=== PATIENT | male | born 1975 | race Hispanic/Latino ===

== ENCOUNTER 2017-01-18 04:50 | Emergency (ER) | payer SELFPAY ==
[~2017-01-18] VITALS: Ht 170.2 cm; Wt 112.7 kg
[~2017-01-18 04:50] MED LIST: BACTRIM,SEPT1 TABLET PO; MITRAZOL 2% CRE45 GM TP; MOBIC7.5 MG PO
[2017-01-18 06:05] LABS: ADD MIUA? YES; BILIRUBIN NEGATIVE; BLOOD SMALL; COLOR YELLOW ((YELLOW)); GLUCOSE (STRIP) >=500; KETONES NEGATIVE; LEUKOCYTES SMALL; NITRITE NEGATIVE; PROTEIN (STRIP) NEGATIVE; SPECIFIC GRAVITY 1.029 (1.000-1.030); UROBILINOGEN 0.2 MG/DL (0.2-1.0)
[2017-01-18 06:08] LABS: BACTERIA NONE SEEN /HPF; EPITHELIAL CELLS RARE /HPF; MUCUS NONE SEEN /LPF; RED BLOOD CELLS 0-5 /HPF (0-5); UCUL ADDED? NO; WHITE BLOOD CELLS 0-5 /HPF (0-5)
[2017-01-18] MEDS ORDERED: VIBRAMYCIN100 MG PO (06:58)
[2017-01-18 07:24] LABS: POINT-OF-CARE METER ID UU13113702
[2017-01-18 07:50] LABS: EOSINOPHIL (%) 3.3 % (0-5); EOSINOPHIL COUNT 0.3 K/uL (0-0.3); HEMATOCRIT 44.7 % (38.0-50.0); IMMATURE GRANULOCYTE (%) 0.3 % (0.0-0.7); IMMATURE GRANULOCYTE COUNT 0.2 K/uL; LYMPHOCYTE COUNT 2.9 K/uL (1.0-2.8); MCH 28.3 PG (29.0-34.0); MCHC 34.9 G/DL (30.0-36.0); MEAN PLAT.VOLUME 11.3 uM^3 (9.0-12.4); MONOCYTE (%) 9.1 % (3-12); MONOCYTE COUNT 0.7 K/uL (0-0.8); NEUTROPHIL (%) 49.1 % (45-76); NEUTROPHIL COUNT 3.8 K/uL (1.8-6.4); PLATELET COUNT 195 K/uL (156-360); RBC DIS.WIDTH-CV 13.1 % (11.8-14.6); RBC DIS.WIDTH-SD 38.4 % (39-53); RED BLOOD COUNT 5.52 M/uL (4.00-5.50); WHITE BLOOD COUNT 7.7 K/uL (4.1-10.2)
[2017-01-18 08:17] LABS: ANION GAP 6 MEQ/L (2-14); CHLORIDE 102 MEQ/L (99-109); POTASSIUM 4.1 MEQ/L (3.7-5.4); SAMPLE HEMOLYSIS CHECK 0; SAMPLE ICTERIC CHECK 0; SAMPLE LIPEMIA CHECK 0; SODIUM 135 MEQ/L (136-147); TOTAL BILIRUBIN 0.5 MG/DL (0.0-1.0)
[2017-01-18 08:23] LABS: ALKALINE PHOSPHATASE 145 IU/L (3-129); GFR ESTIMATE (CALCULATED) > 59 mL/min/; GLUCOSE 305 mg/dL (70-99); UREA NITROGEN (BUN) 20 mg/dL (9-23)
[2017-01-18] MEDS ORDERED: METFORMIN HCL500 MG PO (08:47)
[2017-01-18 09:02] VITALS: BP 160/94
[2017-01-19 13:32] LABS: CHLAMYDIA TRACHOMATIS NEGATIVE; NEISSERIA GONORRHOEAE NEGATIVE
== END 2017-01-18 08:55 | disposition home or self-care (01) ==
LOC: EME 04:50
PROVIDERS: Emergency Medicine
DX: N48.1 Balanitis (principal); E11.9 Type 2 diabetes mellitus without complications
CPT/HCPCS: 80053; 81003; 82948; 85025; 87491; 87591; 99281; 99284